=== PATIENT | female | born 1945 | race Caucasian/White ===

== ENCOUNTER 2017-05-11 02:37 | Inpatient (IN) | payer MEDICARE, OTHER ==
--- NOTE | ~2017-05-11 | CT4 ---
[facility] A Service of [facility] & [facility] RADIOLOGY TEXT RESULTS PATIENT: PAULY BLAKELY LOCATION: [facility] 308-01 : 45 UNIT #: [id number] AGE: [address]: Patricia Yoo MD SEX: F ORDER DR: [id number] [facility] [address] [facility]. [place], [place] [address] [id number] MR#: [id number] #: [id number] NAME: PAULY BLAKELY : 1945 SEX: F STUDY DATE/TIME: 05/11/2017 05:13 UNIT: DESTIN ROOM: STUDY DESCRIPTION: CT Abd and Pelv Wo Cont Attending Physician: Jane Carpenter M.D. Ordering Physician: Jane Carpenter M.D. Primary Care Physician: Mathieu Brambila Jr., M.D. MEDICAL IMAGING REPORT This report is preliminary unless electronic signature is present EXAM CT abdomen and pelvis 05/11 at 05:13. INDICATIONS Weakness, nausea, vomiting and diarrhea for 3 days. TECHNIQUE Axial noncontrast images were obtained through the abdomen and pelvis. Multiplanar reformats were obtained. This CT exam was performed with one or more of the following radiation dose reduction techniques: Automatic exposure control, adjustment of mA and/or kV according to patient size, and iterative reconstruction. COMPARISON No comparison. FINDINGS Abdomen: There is consolidation in the lower lobe which is probably due to atelectasis. Gallbladder surgically absent. No biliary obstruction is seen. Tiny nonobstructing stones noted in the right kidney. No ureteral stones are seen on either side and there is no hydronephrosis. The spleen is enlarged with an AP dimension of 16 cm. The remaining solid organs are normal. There is abnormal wall thickening in the colon compatible with colitis. Small bowel is grossly normal. 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 STAT Urology consult recommended. Uterus surgically absent. Small amount of free fluid in the pelvis may be reactive. Distal small bowel is within normal limits. There is sigmoid diverticulosis. IMPRESSION 1. The emphysematous cystitis. STAT Urology consult recommended. 2. Colitis, predominately involving the ascending and transverse colon. [facility]. [facility] A Service of [facility] & [facility] RADIOLOGY TEXT RESULTS PATIENT: PAULY BLAKELY LOCATION: A 308-01 : 45 UNIT #: [id number] AGE: [address]: Patricia Yoo MD SEX: F ORDER DR: Unopacified small bowel is grossly normal. 3. Splenomegaly. 4. Cholecystectomy and hysterectomy. 5. Tiny nonobstructing stones in the right kidney. No ureteral stones are seen, and there is no hydronephrosis. 6. Bilateral renal cysts. 7. Atelectasis or less likely infiltrate in the lower lobes. 8. Free fluid in the pelvis is nonspecific and probably reactive. STAT * RESULT Dictated by... John Sanchez Jr., M.D. THIS IS AN ELECTRONICALLY VERIFIED REPORT John Sanchez Jr., M.D. at 05/11/2017 9:51 PM FAVIAN/elke TD: 05/11/2017 06:13 JOB #: [id number] MEDICAL IMAGING REPORT Page 1 of 1 COPY
--- NOTE | ~2017-05-11 | CO ---
Unit #: [id number] #: [id number] Patient: PAULY BLAKELY [id number] [address] [place], [place] [address] [id number] I MR#: [id number] NAME: PAULY BLAKELY. ROOM: 308 Age: 72 Sex: F Admission Date: 05/11/2017 : 1945 Attending Physician: Patricia Yoo M.D. Primary Care Physician: Mathieu Brambila Jr., M.D. Consultation Date: 05/13/2017 CONSULTATION REPORT DICTATED FOR Dante Maciel M.D. PRIMARY CARE PHYSICIAN Mathieu Brambila M.D. REASON FOR CONSULTATION Anemia. HISTORY OF PRESENT ILLNESS The patient is a very pleasant 72-year-old female with past medical history significant for interstitial cystitis, recurring UTIs, seizure disorder, myelodysplastic syndrome, pernicious anemia. The patient was admitted with acute respiratory failure and UTI. The patient is being evaluated for anemia. Hemoglobin was 10.9 on admission and now down to 8.2. The patient was found to have Hemoccult-positive stool. The patient reports several days of diarrhea after taking a course of antibiotics for UTI and was having suprapubic pain, otherwise no GI symptoms. No history of overt GI bleeding in the form of hematemesis, melena, or hematochezia. 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 She has had several endoscopic evaluations in the past including EGD and colonoscopy in 2012 and repeat colonoscopy in 2014. Exams were unremarkable. PAST MEDICAL HISTORY Interstitial cystitis, recurring UTIs, myelodysplastic syndrome, pernicious anemia, seizure disorder, vaginal atrophy. PAST SURGICAL HISTORY Hysterectomy and gallbladder removal. ALLERGIES Phenobarbital and phenytoin. HOME MEDICATIONS Procrit, Prozac, aspirin, Zebeta, Xanax, Desyrel, Zocor, Neurontin, vitamin B12 injection. FAMILY HISTORY Significant for colon cancer in her mother. Otherwise, no pancreatic or liver disease. SOCIAL HISTORY The patient is . Lives at home with her . No history of Unit #: [id number] #: [id number] Patient: PAULY BLAKELY tobacco, alcohol, or illicit drug use. REVIEW OF SYSTEMS 12-point review of system were obtained and were negative except for pertinent positive findings as noted in HPI. PHYSICAL EXAMINATION GENERAL: The patient is awake, alert, and oriented, in no acute distress. VITAL SIGNS: Stable with temperature 98.2, blood pressure 136/66, heart rate 84, respirations 18. HEENT: The patient has mild pallor. No scleral icterus. No lymphadenopathy. No peripheral edema. CHEST: Clear to auscultation bilaterally. CARDIOVASCULAR: Regular rate and rhythm. ABDOMEN: Soft and nontender. Liver and spleen are not palpable. Bowel sounds normal. DIAGNOSTIC STUDIES LABORATORY RESULTS: BMP notable for glucose of 117. Normal BUN and creatinine. Potassium 3.4. CBC notable for hemoglobin of 8.2 down from 10.9 on admission, MCV 102, platelet 102, WBC 9. Urine culture positive for E coli and Klebsiella pneumoniae. IMAGING STUDIES: CT of abdomen and pelvis show emphysematous cystitis, colitis predominantly involving the ascending and transverse colon. Chest x-ray showed no acute findings. CLINICAL IMPRESSION AND PLAN 1. Anemia with background history of vitamin B12 deficiency and myelodysplastic syndrome. Drop in hemoglobin most likely dilutional. The patient has no history of overt GI bleed. 2. Diarrhea and possible colitis, most likely infectious colitis possibly C diff. Based on patient's history, await stool studies at this time. 3. Urinary tract infection. 4. Acute respiratory failure. Repeat endoscopic evaluation is not indicated at this time as the patient has had several studies in the past. Most recent colonoscopy was in 2014. Exam was normal. Recommending continue to monitor hemoglobin. Consider repeat endoscopic exam if significant drop in hemoglobin. The patient and plan of care were discussed in detail with Dr. Maciel. Further recommendations to follow. 5. Persistent diarrhea. Thank you very much for asking us to see this patient. We appreciate the consult. Dictated by... PATRICIA Khan/orion TD: 05/14/2017 13:09 JOB #: [id number] Unit #: [id number] #: [id number] Patient: PAULY BLAKELY CONSULTATION REPORT Page 1 of 1 X X CONSULTATION REPORT
--- NOTE | ~2017-05-11 | EKG ---
PATIENT: PAULY BLAKELY UNIT #: [id number] Ventricular Rate: 97 BPM Atrial Rate: 97 BPM P-R Interval: 168 ms QRS Duration: 88 ms Q-T Interval: 422 ms QTC Calculation(Bezet): 535 ms P [place]: 42 degrees Calculated R [place]: -12 degrees Calculated T [place]: 127 degrees Diagnosis Line: Sinus rhythm with PVC's Diagnosis Line: ST and T wave abnormality, consider anterolateral Diagnosis Line: ischemia Diagnosis Line: Prolonged QT Diagnosis Line: Abnormal ECG Diagnosis Line: When compared with ECG of 05-NOV-2016 13:07, Diagnosis Line: Nonspecific T wave abnormality, worse in Inferior Diagnosis Line: leads Diagnosis Line: Confirmed by JEREMY WHITMORE MD ([id number]) on Diagnosis Line: 05/12/2017 7:17:22 AM INTERPRETING : CANDI
--- NOTE | ~2017-05-11 | DS ---
Unit #: [id number] #: [id number] Patient: PAULY BLAKELY [id number] [address] [address] [id number] I MR#: [id number] NAME: PAULY BLAKELY. ROOM: 241 Age: 72 Sex: F Admission Date: 05/11/2017 : 1945 Discharge Date: 05/16/2017 Attending Physician: Patricia Yoo M.D. Primary Care Physician: Mathieu Brambila Jr., M.D. DISCHARGE SUMMARY REVISED REPORT DISCHARGE DIAGNOSES 1. Sepsis. 2. Acute C-diff colitis. 3. Acute emphysematous cystitis. 4. Bilateral pneumonia with bilateral atelectasis. 5. Severe acute hypoxic respiratory failure. 6. Metabolic acidosis. 7. Urinary tract infection with e-coli and Klebsiella pneumonia. 8. History of myelodysplastic syndrome with anemia and thrombocytopenia. 9. Occult stool positive for blood. Outpatient followup needed. No endoscopy needed during hospitalization course per gastroenterology. 10. Toxic metabolic encephalopathy, resolved. 11. Anemia, acute on chronic, secondary to myelodysplasia and also likely acute blood loss. No overt bleeding, though. 12. Hypokalemia. 13. Acute kidney injury. 14. History of seizure disorder. 15. Interstitial cystitis history. 16. Recurrent urinary tract infection. 17. History of pernicious anemia. 18. Vaginal atrophy. CONSULTANTS Dr. Dwyer. Dr. Kramer. Dr. Dante Maciel. PROCEDURES PERFORMED None. DIAGNOSTIC DATA LABORATORY: Blood cultures negative. Vitamin B12 1154, folate 14.8, sodium 141, potassium 3.3, creatinine 0.4, calcium 9.1, white blood cell count 8.5, hemoglobin 9.4, platelets 139. Occult blood positive in stool. Urine cultures are growing e-coli and Klebsiella pneumonia. IMAGING: CT of the abdomen and pelvis shows emphysematous cystitis and colitis involving the ascending and transverse colon. ALLERGIES Phenobarbital and phenytoin. Unit #: [id number] #: [id number] Patient: PAULY BLAKELY DISCHARGE MEDICATIONS 1. Albuterol 2.5 mg inhalation q.6 h. p.r.n. wheezing. 2. Flomax 0.4 mg p.o. daily. 3. Tylenol 650 mg q.6 h. p.r.n. mild to moderate pain. 4. Mysoline 50 mg p.o. t.i.d. 5. Prozac 20 mg daily. 6. Claritin 10 mg p.o. daily. 7. Klonopin 0.5 mg p.o. t.i.d. 8. Zebeta 2.5 mg p.o. every other day. 9. Procrit 10,000 units every two weeks. 10. Zocor 20 mg p.o. daily. 11. Flagyl 500 mg p.o. t.i.d. for 11 more days. 12. Pyridine 100 mg p.o. t.i.d. p.r.n. pain. 13. Aspirin 81 mg daily. 14. Potassium 10 mEq p.o. daily. 15. Vitamin B12 1000 mcg injections q. monthly. 16. Omnicef 300 mg p.o. b.i.d. for 10 days. HOSPITAL COURSE The patient is a 72-year-old admitted on 05/11/2017 for shortness of breath and abdominal pain. Acute hypoxic respiratory failure: From bilateral pneumonia and atelectasis. The patient was seen by Dr. Dwyer. The patient received nonrebreather mask initially and later changed to Oxymizer and O2. Currently she is off O2. She does not need oxygen at home. Acute c-diff colitis. The patient was started on Flagyl. Currently better. Able to tolerate diet okay. Continue with Flagyl and complete course and follow up with primary care physician. Acute emphysematous cystitis: The patient was seen by urologist. According to them the patient will continue with medical management with antibiotics. The patient received antibiotics on admission. Urine cultures are growing e-coli and klebsiella pneumonia. The patient received tobramycin, vancomycin and Zosyn initially and later changed to Rocephin. I discussed in detail with Dr. Kramer. According to him, the patient needs to go on Omnicef for 10 more days. Because of previous complications and also current emphysematous cystitis, the patient needs Omnicef. Nitrofurantoin would not penetrate according to him. Even though the patient does have c-diff colitis, she does need Omnicef for her emphysematous cystitis, so she will get that prescription. Anemia: Secondary to myelodysplasia syndrome. She does have occult stool positive. The patient was seen by Dr. Maciel. According to him, no overt bleeding, so the patient can follow as an outpatient with primary care physician. Toxic metabolic encephalopathy: Resolved. Sepsis, some pneumonia and colitis, resolved, present on admission. Myelodysplastic syndrome. 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 The patient will be discharged home. FOLLOWUP Unit #: [id number] #: [id number] Patient: PAULY BLAKELY 1. Follow up with family physician in one week time. 2. Follow up with her urologist, Dr. Campos, in two to three weeks' time. Discussed with Dr. Kramer. Discussed with . No home health needed according to the . Discharge time taken was 45 minutes. Dictated by... Marcial Kuo/lenin TD: 05/16/2017 11:39 JOB #: [id number] CC: Mathieu Brambila Jr., M.D. Robert B. Hendren, M.D. DISCHARGE SUMMARY Page 1 of 1 X Patricia Yoo MD X DISCHARGE SUMMARY
--- NOTE | ~2017-05-11 | CO ---
Unit #: [id number] #: [id number] Patient: PAULY BLAKELY [id number] [facility] [address] [facility]. [place], [place] [address] [id number] I MR#: [id number] NAME: PAULY BLAKELY. ROOM: 308 Age: 72 Sex: F Admission Date: 05/11/2017 : 1945 Attending Physician: Patricia Yoo M.D. Primary Care Physician: Mathieu Brambila Jr., M.D. Consultation Date: 05/11/2017 CONSULTATION REPORT REASON FOR CONSULTATION Emphysematous pyelonephritis. HISTORY OF PRESENT ILLNESS This is a pleasant 72-year-old woman, is in a trauma [place] at [facility], on oxygen rebreather for respiratory difficulty. She presented with increased bladder pain and urinary symptoms yesterday. She is somewhat sleepy, but seems to indicate subjective fevers and chills. She is clearly improved after Briones catheter placement and initial antibiotics. She is a patient of my partner, Dr. David Campos and has a history of interstitial cystitis. She had Macrobid for a multi resistant E coli urinary infection sensitive to cephalosporins on 04/11. She was seen again on 05/09/2017, there was evidence of urinary infection. At that time, she was continued on Detrol and did recent diarrhea. Antibiotics were to be held off until culture results. A urine culture was reportedly sent, but it was not able find any records this morning. PAST MEDICAL HISTORY Include interstitial cystitis, myelodysplastic syndrome, pernicious anemia, history of seizures, vaginal atrophy, and chronic urinary tract infections. PAST SURGICAL HISTORY Include hysterectomy, cholecystectomy, colonoscopy. ADMISSION MEDICATIONS Include albuterol, low-dose aspirin, Zebeta, Klonopin, vitamin B12, Pyridium, potassium, Mysoline, Zocor, Flomax 0.4 mg daily. Dictated by... John Kramer M.D. ARIEL/orion TD: 05/11/2017 09:21 JOB #: [id number] CONTINUATION Unit #: [id number] #: [id number] Patient: PAULY BLAKELY SOCIAL HISTORY . Lives at home. 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 Does not smoke or drink alcohol or use drugs. REVIEW OF SYSTEMS Difficulty due to current lethargy, but as per above HPI and additionally, she experiences urge incontinence. Bladder pain moderately severe typically 7/10, easy bruising, and shortness of air. PHYSICAL EXAMINATION GENERAL: The patient is mildly lethargic, but oriented and appropriate. VITAL SIGNS: Afebrile with stable vital signs. Currently, temperature 99.1, which is her maximum; pulses is 99; respirations 16; blood pressure current is 133/72. HEENT: Normal. LUNGS: Clear. CARDIAC: Rate and rhythm are regular. ABDOMEN: Soft and nontender. No bladder tenderness. PELVIC: Deferred. EXTREMITIES: No edema. NEUROLOGIC: Intact. DIAGNOSTIC STUDIES LABORATORY RESULTS: Urinalysis consistent with infection. Culture sent. WBC 7.1, creatinine 1.0. IMAGING STUDIES: CT scan images personally reviewed shows impressive infiltration of the bladder wall with air as well as air in the bladder. IMPRESSION Emphysematous cystitis likely persistent resistant multiresistant Escherichia coli. PLAN I agree with Briones catheter drainage and current antibiotics. We will follow with you. Dictated by... John Kramer M.D. ARIEL/orion TD: 05/12/2017 04:12 JOB #: [id number] CONSULTATION REPORT Page 1 of 1 X John Kramer MD X CONSULTATION REPORT
--- NOTE | ~2017-05-11 | CR72 ---
[facility] A Service of [facility] RADIOLOGY TEXT RESULTS PATIENT: PAULY BLAKELY LOCATION: [facility] 308-01 : 45 UNIT #: [id number] AGE: [address]: Patricia Yoo MD SEX: F ORDER DR: [id number] [facility] [address] [facility]. [place], [place] [address] [id number] I MR#: [id number] #: [id number] NAME: PAULY BLAKELY. : 1945 SEX: F STUDY DATE/TIME: 05/11/2017 03:31 UNIT: CED ROOM: 90303 STUDY DESCRIPTION: CR Chest Single View Portable Attending Physician: Patricia Yoo M.D. Ordering Physician: Jane Carpenter M.D. Primary Care Physician: Mathieu Brambila Jr., M.D. MEDICAL IMAGING REPORT This report is preliminary unless electronic signature is present EXAM Portable chest, 05/11 at 03:31 INDICATION Shortness of air, sepsis and weakness for 3 days. FINDINGS AP portable chest is compared with 11/05/2016. Lung volumes are low and there is some atelectasis in the bases. There is elevation of the right hemidiaphragm. Cardiomegaly is stable. No pneumothorax. IMPRESSION Stable cardiomegaly. Low volume inspiration with mild atelectasis in both bases. Dictated by... John Sanchez Jr., M.D. THIS IS AN ELECTRONICALLY VERIFIED REPORT John Sanchze Jr., M.D. at 05/11/2017 9:53 PM FAVIAN/leann TD: 05/11/2017 09:06 JOB #: [id number] MEDICAL IMAGING REPORT Page 1 of 1 COPY
--- NOTE | ~2017-05-11 | EKG ---
PATIENT: PAULY BLAKELY UNIT #: [id number] Ventricular Rate: 104 BPM Atrial Rate: 104 BPM P-R Interval: 136 ms QRS Duration: 84 ms Q-T Interval: 368 ms QTC Calculation(Bezet): 483 ms P [place]: 33 degrees Calculated R [place]: -10 degrees Calculated T [place]: 122 degrees Diagnosis Line: Sinus tachycardia Diagnosis Line: ST and T wave abnormality, consider anterolateral Diagnosis Line: ischemia Diagnosis Line: Abnormal ECG Diagnosis Line: When compared with ECG of 11-MAY-2017 03:48, Diagnosis Line: (unconfirmed) Diagnosis Line: QT has shortened Diagnosis Line: Confirmed by JEREMY WHITMORE MD ([id number]) on Diagnosis Line: 05/12/2017 7:28:03 AM INTERPRETING MD: CANDI
--- NOTE | ~2017-05-11 | CO ---
Unit #: [id number] #: [id number] Patient: PAULY BLAKELY [id number] [address] [address] [id number] I MR#: [id number] NAME: PAULY BLAKELY. ROOM: 308 Age: 72 Sex: F Admission Date: 05/11/2017 : 1945 Attending Physician: Patricia Yoo M.D. Primary Care Physician: Mathieu Brambila Jr., M.D. Consultation Date: 05/11/2017 CONSULTATION REPORT REASON FOR CONSULTATION Hypoxia. HISTORY OF PRESENT ILLNESS This is a very pleasant 72-year-old female with a past medical history significant for interstitial cystitis, vaginal atrophy, recurrent UTIs, seizure disorder, who presented to the emergency room with altered mental status, high fever, chills and dysuria. Per , patient also was more dyspneic, especially in the hot weather, but they denied any cough, sputum production or congestion. In the emergency room, her CT abdomen showed emphysematous cystitis with UTI and colitis. The patient admitted severe, explosive, watery diarrhea. The patient denied any chest pain or palpitations. PAST MEDICAL HISTORY 1. Interstitial cystitis. 2. Recurrent UTIs. 3. Myelodysplastic syndrome. 4. Pernicious anemia. 5. Seizure disorder. 6. Vaginal atrophy. PAST SURGICAL HISTORY 1. Hysterectomy. 2. Gallbladder removal. ALLERGIES Phenobarbital and phenytoin. HOME MEDICATIONS 1. Procrit p.r.n. 2. Prozac p.r.n. 3. Aspirin p.r.n. 4. Zebeta. 5. Xanax. 6. Desyrel. 7. Zocor. 8. Neurontin. 9. B12 injection. FAMILY HISTORY Unit #: [id number] #: [id number] Patient: PAULY BLAKELY Noncontributory. SOCIAL HISTORY The patient is . She lives at home with her . 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 No tobacco, alcohol or drug abuse. REVIEW OF SYSTEMS Twelve point review of systems were obtained and were negative except for what was mentioned in the HPI. PHYSICAL EXAMINATION GENERAL: The patient is in no acute distress at this point. HEENT: Atraumatic, normocephalic. PERRLA, EOMI. NECK: Supple. No JVD, no lymphadenopathy. CHEST: Decreased breath sounds at the bases but no crackles or rhonchi. HEART: S1, S2. No murmurs, gallops or rubs. ABDOMEN: Soft, nontender. Bowel sounds positive. No hepatosplenomegaly. EXTREMITIES: No edema or cyanosis. SKIN: No rashes. RIVET STICKER: Awake, alert, oriented x3. No focal motor/sensory deficits. DIAGNOSTIC STUDIES LABORATORY: ABG shows 7.35/28/276. White blood count is 17.1, hemoglobin 10.9. IMAGING: CT abdomen is reviewed by me. ASSESSMENT 1. Acute hypoxic respiratory failure. 2. Emphysematous cystitis. 3. Colitis. 4. Chronic anemia. 5. Acute kidney injury. 6. Seizure disorder. PLAN 1. Hypoxia: Etiology is unclear. Partially, it is related to atelectasis. However, the amount of oxygen she is needing is currently 8 L Oxymizer. Non-ST elevation NH versus PE needs to be ruled out even though she is not having classic symptoms for them. I doubt she is having any kind of pneumonia given her symptom and chest x-ray findings. 2. Due to her GFR, I will hold on any contrast procedure or test and will obtain only EKG and troponin at this point. She will likely need CT angiogram at some point. 3. Will add Flagyl concerning for C. diff colitis. 4. Will add bicarb p.o. and continue IV hydration. Urology eval is noted. Dictated by... Diogenes Dwyer M.D. EA/donald Unit #: [id number] #: [id number] Patient: PAULY BLAKELY TD: 05/12/2017 07:24 JOB #: [id number] CONSULTATION REPORT Page 1 of 1 X DIOGENES SHAHID MD CONSULTATION REPORT
[~2017-05-11 02:37] MED LIST: ACETAMINOPHEN PO; ALBUTEROL MININEB NEB; ALPRAZOLAM PO; ASPIRIN81 M1 PO; ASPIRIN81 M2 PO; BENADRYL PO; CIPRO PO; CIPRO250 MG PO; CIPROFLOXACIN500 M1 PO; CYANOCOBAL1000 MCG/1 IJ; DARVOCET-N 1001 TAB PO; DESYREL50 MG DOB; DIFLUCAN PO; EXCEDRIN EXTRA1 EAC1 PO; EXCEDRIN GELTAB1 TA1 PO; FLOMAX0.4 M1 DOB; IBUPROFEN IB200 M1 PO; KEFLEX PO; KLONOPIN0.5 MG PO; KLOR-CON PO; LASIX20 MG PO; MACROBID 100 M100 MG PO; MACROBID100 M1 DOB; MACROBID100 MG PO; MELATONIN1 MG PO; MOBIC PO; MYSOLINE50 MG DOB; NEURONTIN100 MG PO; PROCRIT; PROCRIT SUBQ; PROZAC PO; PYRIDIUM PO; TRAZODONE PO; TYLENOL #3 PO; TYLENOL325 M1 PO; VITAMIN B 12; ZEBETA5 M1 PO; ZEBETA5 MG PO; ZOCOR20 MG PO; ZYRTEC PO
[2017-05-11 03:24] LABS: ARTERIAL BLOOD GAS ART SITE RIGHT BRACHIAL; ARTERIAL BLOOD GAS CARBOXY HB 0.5 %sat (0.0-9.0); ARTERIAL BLOOD GAS HCO3 15.8 mmol/L; ARTERIAL BLOOD GAS MET HB 4.9 %sat (0.0-2.0); ARTERIAL BLOOD GAS PCO2 28.1 mmHg (35.0-45.0); ARTERIAL BLOOD GAS pH 7.359 (7.350-7.450); ARTERIAL DRAW? YES
[2017-05-11 03:25] LABS: ARTERIAL BLOOD GAS DELIVERY NON REBREATHER MASK
[2017-05-11 03:34] LABS: BASOPHIL% 0.2 % (0-2.5); DIFF IND YES; EOSINOPHIL# 0.3 X10e3 (0-0.7); EOSINOPHIL% 1.5 % (0.0-7.0); HEMATOCRIT 34.7 % (35.0-45.0); HEMOGLOBIN 10.9 gm/dL (12.0-16.0); LYMPHOCYTE# 1.2 X10e3 (1.0-3.5); LYMPHOCYTE% 7.2 % (17.0-45.0); MEAN CELL VOLUME 104.5 FL (83-96); MEAN CORPUSCULAR HEMOGLOBIN 32.7 PG (28-34); MEAN CORPUSCULAR HGB CONC 31.3 g/dL (30-36); MEAN PLATELET VOLUME 8.3 FL (6.5-11.5); MONOCYTE# 1.1 X10e3 (0-1.0); MONOCYTE% 6.7 % (3.0-12.0); NEUTROPHIL# 14.4 X10e3 (1.5-7.1); NEUTROPHIL% 84.4 % (40-75); PLATELET COUNT 131 X10e3 (140-420); RED BLOOD COUNT 3.32 X10e (3.90-5.30); RED CELL DISTRIBUTION WIDTH 15.9 % (11.0-15.5); WHITE BLOOD COUNT 17.1 X10e3 (4.0-10.5)
[2017-05-11 03:35] LABS: POC - CKMB <1.0 ng/mL (0.0-7.9); POC - TROPONIN <0.05 ng/mL (<=0.05)
[2017-05-11 03:51] LABS: INR 1.1; PARTIAL THROMBOPLASTIN TIME 26.5 SECONDS (23.5-31.3); PROTHROMBIN TIME (PATIENT) 11.4 SECONDS (10.0-11.7)
[2017-05-11 03:59] LABS: ALBUMIN SERUM 4.5 g/dL (3.5-5.0); BILIRUBIN, DIRECT 0.3 mg/dL (0.0-0.2); BILIRUBIN,INDIRECT 1.2 mg/dL (0.0-0.9); BILIRUBIN,TOTAL 1.5 mg/dL (0.2-2.0); CALCIUM SERUM 8.9 mg/dL (8.4-10.2); GLOM FILT RATE Estimated 56.3 mL/min (>60); MAGNESIUM 1.9 mg/dL (1.6-3.0); POTASSIUM 3.5 mmol/L (3.5-5.1); PROTEIN TOTAL SERUM 6.5 g/dL (6.0-8.3)
[2017-05-11 04:01] LABS: ANISOCYTOSIS SL; PLATELET ESTIMATE DECREASED (NORMAL); POLYCHROMASIA SL; SPHEROCYTE SL
[2017-05-11 04:34] LABS: URINE SOURCE CLEAN CATCH
[2017-05-11 04:42] LABS: URINE APPEARANCE TURBID; URINE BLOOD 3+ (NEG); URINE COLOR RED; URINE GLUCOSE NEG (NEG); URINE KETONE NEG (NEG); URINE LEUKOCYTE ESTERASE 3+ (NEG); URINE NITRATE POS (NEG); URINE PROTEIN 1+ (NEG); URINE SPECIFIC GRAVITY 1.028 (1.003-1.035)
[2017-05-11 04:45] LABS: URINE BACTERIA AUWI 4+ (NEGATIVE); URINE SQUAMOUS EPITHELIAL CELL NONE SEEN /[HPF]
[2017-05-11] MEDS ORDERED: ALBUTEROL2.5 MG/3 M INH (04:45)
[2017-05-11] MEDS ORDERED: ASPIRIN81 M2 PO (04:46)
[2017-05-11] MEDS ORDERED: ZEBETA5 MG PO ×2 (04:47→05:20)
[2017-05-11] MEDS ORDERED: KLONOPIN0.5 MG PO (04:48)
[2017-05-11] MEDS ORDERED: B-121000 MC1 INJ (04:49)
[2017-05-11] MEDS ORDERED: PROCRIT2000 UNIT/ (04:50)
[2017-05-11] MEDS ORDERED: PROZAC10 M1 PO (04:51)
[2017-05-11 04:53] LABS: CULTURE INDICATED? YES; URINE BILIRUBIN NEG (NEG); UWBCS1 AUWI 0-2 (0-5)
[2017-05-11] MEDS ORDERED: LASIX20 MG PO (05:13)
[2017-05-11] MEDS ORDERED: GABAPENTIN300 MG PO (05:13)
[2017-05-11] MEDS ORDERED: MYRBETRIQ25 MG (05:14)
[2017-05-11] MEDS ORDERED: PYRIDIUM100 MG PO (05:15)
[2017-05-11] MEDS ORDERED: KLOR-CON SPRIN10 MEQ PO (05:16)
[2017-05-11] MEDS ORDERED: MYSOLINE50 M1 PO (05:17)
[2017-05-11] MEDS ORDERED: ZOCOR20 MG PO (05:18)
[2017-05-11] MEDS ORDERED: FLOMAX0.4 M1 PO (05:20)
[2017-05-11] MEDS ORDERED: ALLERGY RELIEF10 M6 PO (05:21)
[2017-05-11] MEDS ORDERED: MYSOLINE50 M2 PO (05:21)
[2017-05-11 06:48] LABS: POC - CKMB <1.0 ng/mL (0.0-7.9); POC - TROPONIN <0.05 ng/mL (<=0.05)
[2017-05-11 17:13] LABS: BASOPHIL% 0.3 % (0-2.5); EOSINOPHIL# 0.3 X10e3 (0-0.7); EOSINOPHIL% 2.2 % (0.0-7.0); HEMATOCRIT 28.8 % (35.0-45.0); HEMOGLOBIN 9.1 gm/dL (12.0-16.0); LYMPHOCYTE# 1.6 X10e3 (1.0-3.5); LYMPHOCYTE% 11.2 % (17.0-45.0); MEAN CELL VOLUME 103.3 FL (83-96); MEAN CORPUSCULAR HEMOGLOBIN 32.8 PG (28-34); MEAN CORPUSCULAR HGB CONC 31.8 g/dL (30-36); MEAN PLATELET VOLUME 7.5 FL (6.5-11.5); MONOCYTE# 1.1 X10e3 (0-1.0); MONOCYTE% 7.6 % (3.0-12.0); NEUTROPHIL# 11.6 X10e3 (1.5-7.1); NEUTROPHIL% 78.7 % (40-75); RED BLOOD COUNT 2.78 X10e (3.90-5.30); RED CELL DISTRIBUTION WIDTH 15.9 % (11.0-15.5); WHITE BLOOD COUNT 14.7 X10e3 (4.0-10.5)
[2017-05-12 06:22] LABS: BASOPHIL# 0.1 X10e3 (0-0.3); BASOPHIL% 0.6 % (0-2.5); EOSINOPHIL# 0.4 X10e3 (0-0.7); EOSINOPHIL% 3.4 % (0.0-7.0); HEMATOCRIT 24.7 % (35.0-45.0); HEMOGLOBIN 7.8 gm/dL (12.0-16.0); LYMPHOCYTE# 1.7 X10e3 (1.0-3.5); LYMPHOCYTE% 14.6 % (17.0-45.0); MEAN CELL VOLUME 104.4 FL (83-96); MEAN CORPUSCULAR HGB CONC 31.6 g/dL (30-36); MEAN PLATELET VOLUME 8.3 FL (6.5-11.5); MONOCYTE# 0.8 X10e3 (0-1.0); MONOCYTE% 6.5 % (3.0-12.0); NEUTROPHIL# 8.9 X10e3 (1.5-7.1); NEUTROPHIL% 74.9 % (40-75); RED BLOOD COUNT 2.36 X10e (3.90-5.30); WHITE BLOOD COUNT 11.9 X10e3 (4.0-10.5)
[2017-05-12 06:57] LABS: DIFF IND YES; PLATELET COUNT 95 X10e3 (140-420)
[2017-05-12 06:59] LABS: ANISOCYTOSIS SL; PLATELET ESTIMATE DECREASED (NORMAL)
[2017-05-12 07:17] LABS: ALBUMIN SERUM 3.2 g/dL (3.5-5.0); BILIRUBIN,TOTAL 1.3 mg/dL (0.2-2.0); CALCIUM SERUM 8.1 mg/dL (8.4-10.2); CREATININE SERUM 0.6 mg/dL (0.6-1.4); GLOM FILT RATE Estimated 91.1 mL/min (>60); POTASSIUM 3.7 mmol/L (3.5-5.1); PROTEIN TOTAL SERUM 5.3 g/dL (6.0-8.3)
[2017-05-13 07:06] LABS: HEMATOCRIT 25.3 % (35.0-45.0); HEMOGLOBIN 8.2 gm/dL (12.0-16.0); MEAN CELL VOLUME 102.2 FL (83-96); MEAN CORPUSCULAR HGB CONC 32.3 g/dL (30-36); MEAN PLATELET VOLUME 8.1 FL (6.5-11.5); RED BLOOD COUNT 2.47 X10e (3.90-5.30)
[2017-05-13 07:34] LABS: BUN/CREATININE RATIO 16.66; CALCIUM SERUM 8.3 mg/dL (8.4-10.2); CREATININE SERUM 0.6 mg/dL (0.6-1.4); GLOM FILT RATE Estimated 91.1 mL/min (>60); POTASSIUM 3.4 mmol/L (3.5-5.1)
[2017-05-14 06:09] LABS: HEMATOCRIT 26.3 % (35.0-45.0); HEMOGLOBIN 8.6 gm/dL (12.0-16.0); MEAN CELL VOLUME 100.1 FL (83-96); MEAN CORPUSCULAR HEMOGLOBIN 32.7 PG (28-34); MEAN CORPUSCULAR HGB CONC 32.7 g/dL (30-36); MEAN PLATELET VOLUME 8.1 FL (6.5-11.5); RED BLOOD COUNT 2.62 X10e (3.90-5.30); WHITE BLOOD COUNT 7.8 X10e3 (4.0-10.5)
[2017-05-14 06:41] LABS: ALBUMIN SERUM 3.6 g/dL (3.5-5.0); BUN/CREATININE RATIO 21.66; CALCIUM SERUM 8.4 mg/dL (8.4-10.2); CREATININE SERUM 0.6 mg/dL (0.6-1.4); GLOM FILT RATE Estimated 91.1 mL/min (>60); POTASSIUM 3.2 mmol/L (3.5-5.1); PROTEIN TOTAL SERUM 6.3 g/dL (6.0-8.3)
[2017-05-15 07:25] LABS: HEMATOCRIT 28.7 % (35.0-45.0); HEMOGLOBIN 9.4 gm/dL (12.0-16.0); MEAN CORPUSCULAR HGB CONC 32.7 g/dL (30-36); MEAN PLATELET VOLUME 8.2 FL (6.5-11.5); RED BLOOD COUNT 2.84 X10e (3.90-5.30); WHITE BLOOD COUNT 8.5 X10e3 (4.0-10.5)
[2017-05-15 07:47] LABS: BUN/CREATININE RATIO 37.5; CALCIUM SERUM 9.1 mg/dL (8.4-10.2); CREATININE SERUM 0.4 mg/dL (0.6-1.4); GLOM FILT RATE Estimated 104.1 mL/min (>60); POTASSIUM 3.3 mmol/L (3.5-5.1)
[2017-05-15 18:49] LABS: FOLATE (FOLIC ACID) 14.8 ng/mL (>5.8)
[2017-05-16] MEDS ORDERED: NON-ASPIRIN PA325 M1 PO (12:07)
[2017-05-16] MEDS ORDERED: MYSOLINE50 M2 PO (12:07)
[2017-05-16] MEDS ORDERED: ZEBETA5 MG PO (12:08)
[2017-05-16] MEDS ORDERED: OMNICEF300 M1 PO (12:09)
[2017-05-16] MEDS ORDERED: FLAGYL PO (12:09)
== END 2017-05-16 13:24 | disposition home or self-care (01) | DRG 871 ==
LOC: CED 02:37 → C3A PCU 06:43 → CEDOF 06:43 → CED 06:48 → C3A PCU 13:27 → C2A 05-15 15:10
PROVIDERS: Emergency Medicine; Internal Medicine; Internal Medicine Nephrology
DX: A41.9 Sepsis, unspecified organism (principal); J96.01 Acute respiratory failure with hypoxia; E87.2 Acidosis; G92 Toxic encephalopathy; J18.9 Pneumonia, unspecified organism; D69.59 Other secondary thrombocytopenia; A04.7 Enterocolitis due to Clostridium difficile; G40.909 Epilepsy, unspecified, not intractable, without status epilepticus; Z90.49 Acquired absence of other specified parts of digestive tract; Z90.710 Acquired absence of both cervix and uterus; Z79.82 Long term (current) use of aspirin; Z80.9 Family history of malignant neoplasm, unspecified; E53.8 Deficiency of other specified B group vitamins; B96.20 Unspecified Escherichia coli [E. coli] as the cause of diseases classified elsewhere; B96.1 Klebsiella pneumoniae [K. pneumoniae] as the cause of diseases classified elsewhere; N95.2 Postmenopausal atrophic vaginitis; N30.80 Other cystitis without hematuria; D46.9 Myelodysplastic syndrome, unspecified
CPT/HCPCS: 36415; 36600; 71010; 74176; 80048; 80053; 80076; 80200; 81003; 82274; 82553; 82607; 82746; 82803; 83605; 83690; 83735; 84484; 85025; 85027; 85610; 85730; 87040; 87086; 87088; 87186; 93005; 94640; 94760; 96365; 96367; 97161; 97166; 99285; G8978-GP; G8979-GP; G8980-GP; G8987-GO; G8988-GO; G8989-GO; J0696; J1650; J2543; J3260; J3370; J3420